=== PATIENT | female | born 1995 | race Caucasian/White ===

== ENCOUNTER 2024-12-11 19:07 | Inpatient (IN) | payer BC, SELFPAY ==
[2024-12-11] VITALS (7 sets, daily range): BP systolic 88–111; BP diastolic 50–86; BMI 29.6; BMI 28.9
--- NOTE | 2024-12-11 16:29 | ED.GENMED ---
History of Present Illness
General
Time Seen by Provider: 12/11/24 16:29
History of Present Illness
History of Present Illness:
TIME OF INITIAL ENCOUNTER: 4:30 PM
HPI:
EXAM:
NUMBER AND COMPLEXITY OF PROBLEMS ADDRESSED AT THE ENCOUNTER
� Chronic conditions affecting care:
� Acute Exacerbation and/or Progression of Chronic Illness:
� Differential Diagnosis includes:
AMOUNT AND/OR COMPLEXITY OF DATA TO BE REVIEWED AND ANALYZED
� I performed an independent evaluation of and my interpretation is:
EKG:
CT:
X-rays:
Laboratory Studies:
Other:
� Review of other/old records:
� Clinical information was obtained by an independent historian:
� Prescriptions/Medications Considered but not given:
� Further testing considered but not performed:
RISK OF COMPLICATIONS AND/OR MORBIDITY OR MORTALITY OF PATIENT MANAGEMENT
� Social determinants of health affecting care:
� Discussion with other providers:
� Escalation of care including admission/observation vs risk of discharge considered:
ANY OTHER UPDATES:
ED Attending Note
-
Portions of this chart may have been created with voice recognition software.� Occasional wrong word or��sound alike� substitutions may have occurred due to the inherent limitations of voice recognition software.
Discharge Plan
Departure
Referrals:
UNKNOWN - PT DOES,NOT KNOW [Family Provider]
Discharge Date and Time
Print Language: SPANISH
--- NOTE | 2024-12-11 16:39 | DOWNTIME ---
There was a [facility] [employer] Downtime on 12/11/2024 from 1230 to 12/11/2024 at 1550. Downtime documentation of patient's care, including medication administrations, has been reconciled in the electronic record per guidelines. Refer to the
patient's paper chart under the miscellaneous tab to see printed paper medication records and downtime forms.
[2024-12-11 16:58] LABS: Urine Albumin 2+ (Neg - Trace); Urine Bilirubin 2+ (Negative); Urine Character Clear (Clear); Urine Color Yellow; Urine Glucose Negative (Negative); Urine Ketone 1+ (Negative); Urine Leukocyte 1+ (Negative); Urine Nitrite Negative (Negative); Urine Occult Blood 4+ (Negative); Urine Urobilinogen 3+ (Neg - 1+)
--- NOTE | 2024-12-11 17:05 | ED.GENMED ---
History of Present Illness
<Nalini Herrera, GLASS TECHNICIAN - Last Filed: 12/12/24 23:00>
General
Chief Complaint: Fever
Source: patient
Exam Limitations: none
Time Seen by Provider: 12/11/24 16:29
Nursing documentation reviewed up to this point in time: agreed with
History of Present Illness
History of Present Illness:
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
5 days ago felt generally fatigued, stressed with illness in family, nauseated.
4 days ago headache, vomited that night. Fever 103 took Tylenol
3 days ago fatigue, laid on couch all day, fever, chills, poor appetite vomited once
2 days ago felt a little better but still with fever, started menses. Went to [facility], and labs showed neutropenia and thrombocytopenia, EKG was normal. Didn't want to come to hospital, home and rested
Today, went back to [employer], had 1.5 liters NSS, 1 L RL, Toradol IV fever 103. [facility] from [facility] reports WBC 1.0, Platelets 25 so sent here for eval.
Pt denies CP, SOB, abd pain. Denies UTI symptoms. Mild, intermittent cough
No known sick contacts, no recent travel outside states.
Past History
<Nalini Herrera, GLASS TECHNICIAN - Last Filed: 12/12/24 23:00>
Past History
ED Past Medical History: Asthma and Other (migraines)
ED Past Surgical History: Orthopedic and Other (wisdom teeth)
Social History
Tobacco: Non-smoker
Alcohol: Occasional
Personal: Single
Living: with family
Employment: Employed
Review of Systems
<Nalini Herrera, GLASS TECHNICIAN - Last Filed: 12/12/24 23:00>
Review of Systems
Allergies reviewed?: Yes
All Other Systems: ROS reviewed and negative except as documented in HPI and ROS
Constitutional: Reports fever, fatigue and chills
EENT: Reports sore throat (had mild sore throat but thinks its from dry mouth, throat not sore now)
Respiratory: Reports cough (mild, intermittent); Denies trouble breathing
Cardiac: Denies chest pain, diaphoresis or syncope
ABD/GI: Reports nausea, vomiting and anorexia; Denies abdominal pain
: Denies dysuria, frequency or difficulty voiding
Musculoskeletal: Reports no symptoms
Skin: Reports no symptoms
Neurological: Reports no symptoms
Phy Exam
<Nalini Herrera, GLASS TECHNICIAN - Last Filed: 12/12/24 23:00>
Physical Exam
Physical Exam:
GENERAL: No acute distress. A&Ox3.
CONSTITUTIONAL: Temp 101.6 po
EYES: clear, conjunctivae normal
ENMT: moist mucus membranes, Pharynx nl
RESPIRATORY: Regular respirations, nonlabored, lungs clear.
CARDIOVASCULAR: Tachycardic rate 114 regular rate and rhythm, no murmurs, no rubs.
GI: Soft, nontender, normal BS
MUSCULOSKELETAL: Moves with ease. Well perfused.
SKIN: Warm, dry, pink
PSYCH: Normal mood and affect. Well kept, interactive and appropriate
NEUROLOGIC: Awake, alert and oriented. No focal neurological deficits
Course
<Nalini Herrera, GLASS TECHNICIAN - Last Filed: 12/12/24 23:00>
Orders/Labs/Results
Orders:
Orders
12/11/24 Breakfast
Regular
At Your Request: Full Participation
12/11/24 15:51
COVID-19 Antigen Routine
Complete Blood Count/With Diff Routine
Comprehensive Metabolic Panel Routine
HCG, Serum Qualitative Screen Routine
Lactic Acid Routine
Monotest Urgent
Comment: ADDON
PTT Routine
Prothrombin Time Routine
Urinalysis Reflex To Culture Routine
Urine Microscopic Reflex Cult Routine
Blood Culture Routine
DEUCE Source: B
Specimen Description:
Blood Culture Routine
DEUCE Source: B
Specimen Description:
Influenza A+B Rapid Molecular Routine
DEUCE Source: [place]AB
Specimen Description:
Urine Culture Routine
DEUCE Source: U
Specimen Description:
12/11/24 17:45
Add On- LAB Urgent
Tests Added?: monotest
12/11/24 17:48
Add On- LAB Urgent
Tests Added?: urine culture
12/11/24 18:41
Admit/Transfer Patient As Directed
Co-Sign Provider:
Level of Care: Inpatient admission
Assign to:: Telemetry
Physician / Group: reyna
Diagnosis: fever
Reason for Telemetry: Arrhythmia
Date to Stop Telemetry: 12/14/24
Time to Stop Telemetry: 11:00
Reason for Hospitalization: fever
Expected length of stay greater than two midnights?: Yes
ELOS- Estimated Length of Stay in days: 3
I certify the patient meets the requirements for IP care: Yes
PRN Pain Medication Management As Directed
May give lesser potent ordered pain med per pt: Yes
preference::
Protocol:: Medication orders for pain may be administered in a
manner that supports deferring to patient preference
when the pt is:
- Requesting an ordered lesser potent pain medication.
Least to most potent pain medications are defined
as: acetaminophen < NSAID < tramadol < opioids
(morphine, oxycodone, hydromorphone).
- Requesting a lesser dose of the same medication IF
ORDERED.
- Requesting a less intrusive route of administration
if both routes are prescribed by the provider (PO <
IV).
12/11/24 18:42
Code Status As Directed
Resuscitation Status: Full Code
12/11/24 19:54
[place] Virus Ab Panel I [S] Urgent
Hepatitis A IgM Antibody Urgent
Hepatitis B Core Ab, IgM Urgent
Hepatitis B Surface Antibody Urgent
Hepatitis B Surface Antigen Urgent
Hepatitis C Antibody Urgent
Parvo Virus (B19) IgG & IgM [S] Urgent
12/11/24 20:43
0.9% Sodium Chloride 1000 ml [Nss] 1,000 ml IV 125 mls/hr
Bisacodyl [Dulcolax] 10 mg RECTAL [id number] PRN
Docusate W/Senna [Senokot-S] 1 tablet PO BIDPRN PRN
Ibuprofen [Motrin] 400 mg PO Q6HPRN PRN
Polyethylene Glycol Powder [Miralax] 17 grams PO DAILYPRN PRN
12/11/24 20:43
Respiratory Culture/Gram Stain Routine
DEUCE Source: Sputum
Specimen Description:
Date Specimen was Collected: 12/12/24
Time Specimen was Collected: 16:06
Activity As Directed
Activity Level: As Tolerated
Pneumatic Compression Sleeves As Directed
Type: Knee high
Vital Signs As Directed
Frequency: Per unit guidelines
DX Deep Vein Thrombosis Video Routine
12/11/24 20:57
Albuterol [ProAIR HFA INHALER] 2 puff INH R ONCE PRN PRN
12/11/24 22:00
Montelukast Sodium [Singulair] 10 mg PO HS
Nortriptyline [Pamelor] 20 mg PO HS
12/11/24 23:22
Lactic Acid Q4H
12/12/24 06:16
Comprehensive Metabolic Panel IN AM
12/13/24 06:00
Complete Blood Count/No Diff IN AM
Comprehensive Metabolic Panel IN AM
12/14/24 06:00
Complete Blood Count/No Diff IN AM
Comprehensive Metabolic Panel IN AM
12/14/24 11:00
DC Protocol for Telemetry ONCE
12/15/24 06:00
Complete Blood Count/No Diff IN AM
Comprehensive Metabolic Panel IN AM
Abnormal Lab Results
12/11/24
15:51
WBC 1.1 L* 10^3/uL
(4.8-10.8)
RBC 4.08 L 10^6/uL
(4.20-5.40)
Hct 35.4 L %
(37.0-47.0)
Plt Count 44 L 10^3/uL
(130-400)
MPV 12.6 H fL
(7.4-10.4)
Absolute Neuts (auto) 0.8 L* 10^3/uL
(1.4-6.5)
Absolute Lymphs (auto) 0.3 L 10^3/uL
(1.2-3.4)
PT 14.8 H Sec
(11.4-14.6)
Sodium 133 L mmol/L
(135-145)
Lactic Acid 2.1 H mmol/L
(0.7-2.0)
Calcium 7.0 L mg/dl
(8.4-10.2)
Total Bilirubin 2.0 H mg/dl
(0.2-1.3)
AST 121 H U/L
(14-36)
ALT 199 H U/L
(0-35)
Alkaline Phosphatase 482 H U/L
(38-126)
Total Protein 5.1 L g/dl
(6.3-8.2)
Albumin 3.0 L g/dl
(3.5-5.0)
Urine Ketones 1+ A
(Negative)
Ur Occult Blood Reflex 4+ A
(Negative)
Urine Bilirubin 2+ A
(Negative)
Urine Urobilinogen 3+ A
(Neg - 1+)
Leukocyte Esterase Rfl 1+ A
(Negative)
Urine RBC 16-20 A /HPF
(0-2)
Urine WBC (Reflex) 11-15 A /HPF
(0-5)
Urine Bacteria (Reflex) Many A
(Negative)
Urine Albumin (Reflex) 2+ A
(Neg - Trace)
12/11/24 15:51
12/11/24 15:51
Vital Signs
Initial and Last Documented VS:
Initial Vital Signs
Pulse Ox
97
12/11/24 16:30
Last Documented Vital Signs
Temp Pulse Resp BP Pulse Ox
102.3 F H 120 18 122/79 99
12/12/24 21:45 12/12/24 19:17 12/12/24 19:17 12/12/24 19:17 12/12/24 19:17
<Marisela Vance MD - Last Filed: 12/11/24 18:21>
Orders/Labs/Results
Orders:
Orders
12/11/24 Breakfast
Regular
At Your Request: Full Participation
12/11/24 15:51
COVID-19 Antigen Routine
Complete Blood Count/With Diff Routine
Comprehensive Metabolic Panel Routine
HCG, Serum Qualitative Screen Routine
Lactic Acid Routine
Monotest Urgent
Comment: ADDON
PTT Routine
Prothrombin Time Routine
Urinalysis Reflex To Culture Routine
Urine Microscopic Reflex Cult Routine
Blood Culture Routine
DEUCE Source: B
Specimen Description:
Blood Culture Routine
DEUCE Source: B
Specimen Description:
Influenza A+B Rapid Molecular Routine
DEUCE Source: [place]AB
Specimen Description:
Urine Culture Routine
DEUCE Source: U
Specimen Description:
12/11/24 17:45
Add On- LAB Urgent
Tests Added?: monotest
12/11/24 17:48
Add On- LAB Urgent
Tests Added?: urine culture
12/11/24 18:41
Admit/Transfer Patient As Directed
Co-Sign Provider:
Level of Care: Inpatient admission
Assign to:: Telemetry
Physician / Group: reyna
Diagnosis: fever
Reason for Telemetry: Arrhythmia
Date to Stop Telemetry: 12/14/24
Time to Stop Telemetry: 11:00
Reason for Hospitalization: fever
Expected length of stay greater than two midnights?: Yes
ELOS- Estimated Length of Stay in days: 3
I certify the patient meets the requirements for IP care: Yes
PRN Pain Medication Management As Directed
May give lesser potent ordered pain med per pt: Yes
preference::
Protocol:: Medication orders for pain may be administered in a
manner that supports deferring to patient preference
when the pt is:
- Requesting an ordered lesser potent pain medication.
Least to most potent pain medications are defined
as: acetaminophen < NSAID < tramadol < opioids
(morphine, oxycodone, hydromorphone).
- Requesting a lesser dose of the same medication IF
ORDERED.
- Requesting a less intrusive route of administration
if both routes are prescribed by the provider (PO <
IV).
12/11/24 18:42
Code Status As Directed
Resuscitation Status: Full Code
12/11/24 19:54
[place] Virus Ab Panel I [S] Urgent
Hepatitis A IgM Antibody Urgent
Hepatitis B Core Ab, IgM Urgent
Hepatitis B Surface Antibody Urgent
Hepatitis B Surface Antigen Urgent
Hepatitis C Antibody Urgent
Parvo Virus (B19) IgG & IgM [S] Urgent
12/11/24 20:43
0.9% Sodium Chloride 1000 ml [Nss] 1,000 ml IV 125 mls/hr
Bisacodyl [Dulcolax] 10 mg RECTAL [id number] PRN
Docusate W/Senna [Senokot-S] 1 tablet PO BIDPRN PRN
Ibuprofen [Motrin] 400 mg PO Q6HPRN PRN
Polyethylene Glycol Powder [Miralax] 17 grams PO DAILYPRN PRN
12/11/24 20:43
Respiratory Culture/Gram Stain Routine
DEUCE Source: Sputum
Specimen Description:
Date Specimen was Collected: 12/12/24
Time Specimen was Collected: 16:06
Activity As Directed
Activity Level: As Tolerated
Pneumatic Compression Sleeves As Directed
Type: Knee high
Vital Signs As Directed
Frequency: Per unit guidelines
DX Deep Vein Thrombosis Video Routine
12/11/24 20:57
Albuterol [ProAIR HFA INHALER] 2 puff INH R ONCE PRN PRN
12/11/24 22:00
Montelukast Sodium [Singulair] 10 mg PO HS
Nortriptyline [Pamelor] 20 mg PO HS
12/11/24 23:22
Lactic Acid Q4H
12/12/24 06:16
Comprehensive Metabolic Panel IN AM
12/13/24 06:00
Complete Blood Count/No Diff IN AM
Comprehensive Metabolic Panel IN AM
12/14/24 06:00
Complete Blood Count/No Diff IN AM
Comprehensive Metabolic Panel IN AM
12/14/24 11:00
DC Protocol for Telemetry ONCE
12/15/24 06:00
Complete Blood Count/No Diff IN AM
Comprehensive Metabolic Panel IN AM
Abnormal Lab Results
12/11/24
15:51
WBC 1.1 L* 10^3/uL
(4.8-10.8)
RBC 4.08 L 10^6/uL
(4.20-5.40)
Hct 35.4 L %
(37.0-47.0)
Plt Count 44 L 10^3/uL
(130-400)
MPV 12.6 H fL
(7.4-10.4)
Absolute Neuts (auto) 0.8 L* 10^3/uL
(1.4-6.5)
Absolute Lymphs (auto) 0.3 L 10^3/uL
(1.2-3.4)
PT 14.8 H Sec
(11.4-14.6)
Sodium 133 L mmol/L
(135-145)
Lactic Acid 2.1 H mmol/L
(0.7-2.0)
Calcium 7.0 L mg/dl
(8.4-10.2)
Total Bilirubin 2.0 H mg/dl
(0.2-1.3)
AST 121 H U/L
(14-36)
ALT 199 H U/L
(0-35)
Alkaline Phosphatase 482 H U/L
(38-126)
Total Protein 5.1 L g/dl
(6.3-8.2)
Albumin 3.0 L g/dl
(3.5-5.0)
Urine Ketones 1+ A
(Negative)
Ur Occult Blood Reflex 4+ A
(Negative)
Urine Bilirubin 2+ A
(Negative)
Urine Urobilinogen 3+ A
(Neg - 1+)
Leukocyte Esterase Rfl 1+ A
(Negative)
Urine RBC 16-20 A /HPF
(0-2)
Urine WBC (Reflex) 11-15 A /HPF
(0-5)
Urine Bacteria (Reflex) Many A
(Negative)
Urine Albumin (Reflex) 2+ A
(Neg - Trace)
12/11/24 15:51
12/11/24 15:51
Vital Signs
Initial and Last Documented VS:
Initial Vital Signs
Pulse Ox
97
12/11/24 16:30
Last Documented Vital Signs
Temp Pulse Resp BP Pulse Ox
102.3 F H 120 18 122/79 99
12/12/24 21:45 12/12/24 19:17 12/12/24 19:17 12/12/24 19:17 12/12/24 19:17
<Nalini Herrera, GLASS TECHNICIAN - Last Filed: 12/12/24 23:00>
MDM/Problems Addressed
Differential Diagnosis Includes:
viral illness, malignancy,
MDM/Problems Addressed:
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
5 days ago felt generally fatigued, stressed with illness in family, nauseated.
4 days ago headache, vomited that night. Fever 103 took Tylenol
3 days ago fatigue, laid on couch all day, fever, chills, poor appetite vomited once
2 days ago felt a little better but still with fever, started menses. Went to [facility], and labs showed neutropenia and thrombocytopenia, EKG was normal. Didn't want to come to hospital, home and rested
Today, went back to [facility], had 1.5 liters NSS, 1 L RL, Toradol IV fever 103. Kalani from [facility] reports WBC 1.0, Platelets 25 so sent here for eval.
Pt denies CP, SOB, abd pain. Denies UTI symptoms. Mild intermittent cough.
No known sick contacts, no recent travel outside states.
Temp 101.6 for this examiner HR 114
Results from [facility] with her, scanned into chart.
Specifically had neg Lymes, CXR neg (disc to our xray dept and copied into system), neg Flu, covid.
5:45 p.m.
CBC: WBC 1.1 Plt count 44, otherwise normal
CMP: Transaminitis,
Lactic 2.1
HCG neg
U/A: +4 occult blood, 16-20 RBC, (pt menstruating). 11-15 WBC, many bacteria, Urine culture pending.
6:00 p.m.
Case discussed with Dr. Vance who agrees with admission diagnosis: Transaminitis, neutropenia, thrombocytopenia
Dr. Henry read the CXR:
Hospitalist notified of admission.
<Nalini Herrera GLASS TECHNICIAN - Last Filed: 12/12/24 23:00>
*Critical Care Note
Total Time (30-74mins, 75-104mins- exclusive of procedures): Not Applicable
ED Attending Note
<Nalini Herrera GLASS TECHNICIAN - Last Filed: 12/12/24 23:00>
-
Portions of this chart may have been created with voice recognition software.� Occasional wrong word or��sound alike� substitutions may have occurred due to the inherent limitations of voice recognition software.
<Marisela Vance MD - Last Filed: 12/11/24 18:21>
ED Attending Note
Patient seen and examined by attending physician: Yes
I performed the substantive portion of visit, reviewed & personally made and approve the management plan that is documented in note by myself or RALPH.: Yes
ED Attending Note:
I have seen and evaluated the patient with a [id number] encounter. I have spoken to the [GLASS TECHNICIAN] and involved in the medical history, the physical exam, medical decision making.
Evaluation and management service: agree unless noted differently below.
Results interpretation: agree unless noted differently below.
Patient is a 29-year-old female presenting to the emergency department with fever for the past 5 days. Patient states that it started off with GI symptoms including nausea vomiting diarrhea and a decreased appetite. She then developed a cough.
She does work in urgent care. She does state that the fever has been every single day. It is never happened to her before. On exam patient does have dry oral mucosa. Her abdomen is benign. Blood work was obtained prior to my evaluation which
does show a leukopenia, thrombocytopenia, neutropenia as well as transaminitis. COVID and flu are negative. Will add on monoscreen. Given the abnormalities and patient's ongoing symptoms she will benefit from admission.
Discharge Plan
Departure
Patient Disposition: Admit
Date of Disposition: 12/11/24
Time of Disposition: 18:01
Presentation/result/management discussed w/ accepting MD/DO: Hospitalist
Condition: Fair
Discharge Problem:
Transaminitis, Neutropenia, Thrombocytopenia, Fever
Interventions
Interventions:
*Risk Screen - Suicide Last Done: 12/11/24 16:30
*General Assessment Last Done: 12/11/24 16:30
*Neglect/Abuse Screening Last Done: 12/11/24 16:30
*ED- Fall Risk Assessment Last Done: 12/11/24 16:30
*ED COVID-19 Vaccine History Last Done: 12/11/24 19:49
*Nursing Disposition Last Done: 12/11/24 20:49
ED- Neurological Assessment Last Done: 12/11/24 16:30
ED-Skin Assessment Last Done: 12/11/24 16:30
Discharge Date and Time
Discharge Date/Time: 12/11/24 20:50
[2024-12-11 17:10] LABS: COVID-19 Antigen Negative (Negative)
[2024-12-11 17:15] LABS: Lactic Acid 2.1 mmol/L (0.7-2.0)
[2024-12-11 17:16] LABS: Urine Bacteria Many (Negative); Urine Red Blood Cell 16-20 /HPF (0-2)
[2024-12-11 17:20] LABS: HCG, Serum Qualitative Screen Negative
[2024-12-11 17:23] LABS: ALT (SGPT) 199 U/L (0-35); AST (SGOT) 121 U/L (14-36); Alkaline Phosphatase 482 U/L (38-126); Blood Urea Nitrogen 13 mg/dl (7-17); Carbon Dioxide 23 mmol/L (22-30); Chloride 105 mmol/L (98-107); Estimated Creatinine Clearance 120 ml/min; Glucose 98 mg/dl (70-99); INR 1.11; PT 14.8 Sec (11.4-14.6); Potassium 3.9 mmol/L (3.5-5.1); Sodium 133 mmol/L (135-145); Total Protein 5.1 g/dl (6.3-8.2); eGFR > 60.00
[2024-12-11 17:24] LABS: APTT 31.6 Sec (23.4-35.0)
[2024-12-11 17:41] LABS: % Eosinophils 0.9 % (0-6); % Lymphocytes 25.2 % (20.5-51.1); % Monocytes 6.3 % (1.7-9.3); % Neutrophils 67.6 % (42.2-75.2); Absolute Lymphocytes 0.3 10^3/uL (1.2-3.4); Absolute Monocytes 0.1 10^3/uL (0.1-0.6); Absolute Neutrophils 0.8 10^3/uL (1.4-6.5); Hematocrit 35.4 % (37.0-47.0); Hemoglobin 12.3 g/dL (12.0-16.0); Mean Corp Hgb Conc. 34.7 g/dL (33.0-37.0); Mean Corpuscular Hgb 30.1 pg (27.0-31.0); Mean Corpuscular Volume 86.8 fL (81.0-99.0); Mean Platelet Volume 12.6 fL (7.4-10.4); Nucleated Red Blood Cells % 0 %; Platelet Count 44 10^3/uL (130-400); Red Blood Cell Count 4.08 10^6/uL (4.20-5.40); Red Cell Dist. Width 13.1 % (11.5-14.5); White Blood Cell Count 1.1 10^3/uL (4.8-10.8)
--- NOTE | 2024-12-11 18:09 | HPS.HSE ---
Family Physician
-
Family Physician: NOT KNOW UNKNOWN - PT DOES
Chief Complaint
-
fever, chills.
History of Present Illness
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 five days ago felt generally fatigued and nausea. the following day, she woke up with BARBER, vomiting and fever of 103. Patient complained of fever with
dark greenish sputum. She is taking ibuprofen every 6 hours since then. patient stated poor appetite. stated very fatigue and sleeping more than usual. she started having menses two days ago. [facility] and noted to have
neutropenia,thrombocytopenia. denied chest pain, sob. denied abdominal pain, denied dysuria or hematuria.
Upon arrival patient was noted hypotensive and tachycardic. She was also noted to have thrombocytopenia, neutropenia. Patient received fluids in ER. Admitted for further management
Medical History
Past Medical History
Past Medical History: Reports Other
Additional Past Medical History:
Migraine, asthma
Past Surgical History: Reports Other
Additional Past Surgical History:
Right ankle surgery, wisdom tooth extraction, cryotherapy on the nose
Social History
Tobacco: Non-smoker
Alcohol: Occasional
Drug: None
Living: With Family
Family History
Family History: Not pertinent
Allergies / Home Medications
Allergies reflects when Allergies were last updated in [facility].
Home Medications with original date entered in [facility]
Allergy/Medication List:
Allergies
Allergy/AdvReac Type Severity Reaction Status Date / Time
No Known Allergies Allergy Verified 12/11/24 16:40
Review of Systems
-
Constitutional: Reports Fever, Fatigue and Chills
EENT: Reports No Symptoms
Respiratory: Reports Cough
Cardiac: Reports No Symptoms
Abdomen/GI: Reports Nausea and Vomiting
: Reports No Symptoms
Musculoskeletal: Reports No Symptoms
Skin: Reports No Symptoms
Neurological: Reports No Symptoms
Endocrine: Reports No Symptoms
Hematologic/Lymphatic: Reports No Symptoms
Psych: Reports No Symptoms
Physical Exam
Vital Signs
Vital Signs
Pulse Resp BP Pulse Ox
114 16 111/57 95
12/11/24 16:40 12/11/24 16:40 12/11/24 16:40 12/11/24 16:40
Physical Exam
General: Well Developed, Well Nourished and No Apparent Distress
HEENT: NormoCephalic, Moist mucous membranes and Atraumatic
Respiratory: Clear
Cardiac: S1/S2 and Regular Rhythm; No Murmur or Rub
GI: Soft, Non Tender, Non Distended and Normal Bowel Sounds; No Organomegaly
Rectal: Deferred by Provider
Musculoskeletal: No Clubbing, No Cyanosis and No Edema
Skin: No Rash
Neuro: AO x 3 and Nonfocal/grossly intact
Psych: Calm
Laboratory Results
-
12/11/24 15:51
12/11/24 15:51
Laboratory Results
PT 14.8 Sec (11.4-14.6) H 12/11/24 15:51
INR 1.11 12/11/24 15:51
APTT 31.6 Sec (23.4-35.0) 12/11/24 15:51
Lactic Acid 2.1 mmol/L (0.7-2.0) H 12/11/24 15:51
Total Bilirubin 2.0 mg/dl (0.2-1.3) H 12/11/24 15:51
AST 121 U/L (14-36) H 12/11/24 15:51
ALT 199 U/L (0-35) H 12/11/24 15:51
Alkaline Phosphatase 482 U/L (38-126) H 12/11/24 15:51
Data Reviewed
-
Lab Data: Labs Reviewed by me
Impression/Plan
-
# Nausea/vomiting/fever/chills unclear cause likely viral
#SIRS as evident by leukopenia/tachy, hypotension and lactic
- WBCs 1.1, platelets 44, neutrophils 0.8
- Lactic 2.1
- Urine culture sent from ER
- Carter negative
- Tylenol as needed for fever
- Fluids continued
- Trend lactic
-[place]-richards virus panel ordered
-parasites and HIV combo ordered
-cefepime and doxy continued as per ID
-ID consulted
# Hypocalcemia/hyper bili/transaminitis
- Calcium 7.0, T. bili 2.0, AST 121, ALT 199
- Denies abdominal pain
- Trend LFTs
-hep panel ordered
-obtain US of abdomen
# History of asthma
- Not in acute exacerbation
- Singulair continued
# Migraine
# DVT prophylaxis
- SCDs
# CODE STATUS
- Full code
[2024-12-11 18:38] LABS: Monotest Negative (Negative)
--- NOTE | 2024-12-11 19:24 | W.PN.UPDATE ---
Update Note
Progress Note Update
This is an addendum to H&P written by BIOLOGICAL SCIENCES INSTRUCTOR Shruthi Lundberg
I saw and examined the patient.
The BIOLOGICAL SCIENCES INSTRUCTOR's note was reviewed and I agree with the note.
Comment:
Ms. Pastora Ornelas is a 29 yo woman with hx migraines, asthma who presents to the ER with 5 days of high fever to 103, body aches, nausea, productive cough. 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
She received 2L IVF at urgent care this morning and presents to the ER.
Triage VS: P 114 (patient states pulse always > 100), RR 16, BP 111/57, T 100.1
On exam patient is awake, alert, conversant. Chest clear; CV: S1, S2, RRR; Abdomen: soft, non-tender, no LE swelling, no rash
LABS: WBC 1.1, Hg 12.3, PLT 44, INR 1.11, Na 133, K+ 3.9, Cl 105, BUN 13, Cr 0.8, Glucose 98, Lactate 2.1, T. Bili 2.0, AST 121, ALT 199, Alk Phos 482
covid and flu negative
Severe Sepsis
Neutropenia
Thrombocytopenia
Transaminitis
Productive cough
-unclear source of fever, suspect infection viral versus tick-borne illness resulting in lab abnormalities
-will send Hepatitis panel, EBV Ab, parvovirus, HIV (although patient with one partner, low risk), Ehrlichia, Anaplasma and parasite smear
-Abdominal US, repeat CXR (do not have results from urgent care)
-F/U blood cultures, sputum culture
-case discussed with ID this evening, formal consult tomorrow
-given neutropenia will start IV Cefepime, Doxycycline
-IVF, trend lactate and bolus as needed
-monitor CBC, CMP
Hx Migraines
-AUTO RADIATOR MECHANIC Nortiptyline
Asthma
-AUTO RADIATOR MECHANIC inhaler PRN, montelukast qhs
DVT PPx
FULL CODE
Remainder of plan per BIOLOGICAL SCIENCES INSTRUCTOR note
76 minutes spent on patient care
[2024-12-11] MEDS: MAXIPIME 2000 MG IV (19:47)
[2024-12-11] MEDS: STERILE WATER FOR INJECTION 10 ML IV (19:48)
[2024-12-11] MEDS: FLUSH (NSS) 1 FLUSH IV (19:58)
[2024-12-11] MEDS: VIBRAMYCIN 260 MG IV (19:58)
[2024-12-11] MEDS: PAMELOR 20 MG PO (21:07)
[2024-12-11] MEDS: NSS 1000 IV (21:17)
[2024-12-11] MEDS: SINGULAIR 10 MG PO (21:18)
[2024-12-11 21:19] LABS: HIV Combo Negative (Negative)
[2024-12-11] MEDS: TYLENOL 650 MG PO (22:16)
[2024-12-12] MEDS: STERILE WATER FOR INJECTION 10 ML IV ×3 (02:12→13:59)
[2024-12-12] MEDS: MAXIPIME 1000 MG IV ×3 (02:12→13:59)
[2024-12-12] MEDS: DUONEB 3 ML INH ×4 (02:24→20:02)
[2024-12-12 03:07] VITALS: BP 92/57
[2024-12-12] MEDS: NSS 1000 IV ×3 (04:33→23:17)
[2024-12-12 06:00] VITALS: BMI 29.2
[2024-12-12] MEDS: TYLENOL 650 MG PO (06:41)
[2024-12-12 06:47] LABS: ALT (SGPT) 249 U/L (0-35); AST (SGOT) 245 U/L (14-36); Albumin 2.8 g/dl (3.5-5.0); Alkaline Phosphatase 563 U/L (38-126); Blood Urea Nitrogen 10 mg/dl (7-17); Calcium 7.3 mg/dl (8.4-10.2); Carbon Dioxide 19 mmol/L (22-30); Chloride 110 mmol/L (98-107); Estimated Creatinine Clearance > 125 ml/min; Glucose 81 mg/dl (70-99); Hematocrit 35.9 % (37.0-47.0); Hemoglobin 12.7 g/dL (12.0-16.0); Mean Corp Hgb Conc. 35.4 g/dL (33.0-37.0); Mean Corpuscular Hgb 30.6 pg (27.0-31.0); Mean Corpuscular Volume 86.5 fL (81.0-99.0); Mean Platelet Volume 11.4 fL (7.4-10.4); Platelet Count 42 10^3/uL (130-400); Potassium 4.2 mmol/L (3.5-5.1); Red Blood Cell Count 4.15 10^6/uL (4.20-5.40); Red Cell Dist. Width 13.2 % (11.5-14.5); Sodium 137 mmol/L (135-145); Total Bilirubin 2.1 mg/dl (0.2-1.3); White Blood Cell Count 1.4 10^3/uL (4.8-10.8); eGFR > 60.00
[2024-12-12 07:35] VITALS: BP 96/61
--- NOTE | 2024-12-12 07:45 | W.PN.HOSP.TC ---
Today's Communication/Plan
-
- Follow-up lab results for possible causes of infection
- Await liver toxic medications
- Follow-up CBC, BMP and vitals
Assessment / Plan
Assessment / Plan
#Fever with unknown ethology
-Complicated with leukopenia, neutropenia and thrombocytopenia likely secondary to tick borne illnesses vs viral causes
- WBCs 1.4, platelets 42, neutrophils 0.8
-Symptoms ongoing (nausea/fever/chills)-symptomatic treatment with as needed ibuprofen, cooling blanket, Zofran as needed
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
-ID consulted
-Hep panel pending,[place]-richards virus panel pending, parasites pending, HIV negative, Monospot negative
-Continue cefepime and Doxy for now
#Transaminitis
-No history of liver disease
-LFT s elevated, TB elevated-Follow up
-Abdominal ultrasound: Splenomegaly. Trace abdominal ascites.'
-Denies any mediation overuse ( Tylenol upper dose 1 gram/daily--not more than 4 gr in total in last 5-7 days)
# Asymptomatic bacteriuria
- Urinalysis shows bacteriuria
- No dysuria or increased frequency of urination, per patient
- Urine culture was sent pending
# Metabolic acidosis likely secondary to IV saline
-Switching to LR can be considered if acidosis persists
-Lactic acid level come back to normal
-Follow-up BMP
# Hypocalcemia
- No symptoms of hypocalcemia
- Corrected calcium level 8.3 this a.m. (close to normal range)
- Follow-up
# History of asthma
- Not in acute exacerbation
- Singulair continued
# Migraine
# DVT prophylaxis
- SCDs
# CODE STATUS
- Full code
Anticipated Discharge: 24 - 48 hours
Subjective/Interval History
-
Date of Service: December 12, 2024
Patient reports fever and chills since admission. Denies vomiting and reports some mild nausea.
Objective Data
-
Labs:
Laboratory Results
12/12/24
06:16
WBC 1.4 L*
Hgb 12.7
Hct 35.9 L
Plt Count 42 L
Sodium 137
Potassium 4.2
Chloride 110 H
Carbon Dioxide 19 L
BUN 10
Creatinine 0.7
Glucose 81
Calcium 7.3 L
Total Bilirubin 2.1 H
AST 245 H
ALT 249 H
Alkaline Phosphatase 563 H
Vital Signs:
Vital Signs
Temp Pulse Resp BP Pulse Ox
98.9 F 123 16 92/57 97
12/12/24 03:07 12/12/24 03:07 12/12/24 03:07 12/12/24 03:07 12/12/24 03:07
I&O
12/11/24 12/12/24 12/13/24
06:59 06:59 06:59
Intake Total 1730 / 1730
Balance 1730 / 1730
Review of Systems
-
History Source: Patient
EENT: Reports No Symptoms Reported
Respiratory: Reports No Symptoms
Cardiac: Reports No Symptoms
Abdomen/GI: Reports Nausea
Genitourinary: Reports No Symptoms
Musculoskeletal: Reports No Symptoms
Skin: Reports No Symptoms
Neuro: Reports No Symptoms
Physical Exam
-
General: Well Developed, Well Nourished, Comfortable and Conversant
HEENT: Normocephalic and Atraumatic
Respiratory: Clear to Auscultation
Cardiac: Regular Rhythm and S1/S2
GI: Soft, Nontender and Nondistended
Musculoskeletal: No Clubbing, No Cyanosis and No Edema
Skin: Warm
Neuro: Awake, Alert, Oriented, AO x 3 and Nonfocal/Grossly Intact
Psych: Calm
[2024-12-12] MEDS: VISBIOME 1 CAP PO (08:11)
[2024-12-12] MEDS: VIBRAMYCIN 100 MG PO ×2 (08:11→21:37)
--- NOTE | 2024-12-12 08:54 | PTCARENOTE ---
pt with critical wbc of 1.4 this morning. MD made aware. pt also hypotensive, tachycardic and febrile with a 102.4 oral temp. cooling blanket ordered. MD made aware of vitals. pt flushed in the face but is a standby within the room.
[2024-12-12] MEDS: NSS (PRESERVATIVE FREE) 10 ML IV (09:36)
[2024-12-12] MEDS: PROTONIX IV 40 MG IV (09:36)
[2024-12-12] MEDS: ZOFRAN 4 MG IV ×2 (10:23→20:44)
[2024-12-12 11:17] VITALS: BP 109/72
--- NOTE | 2024-12-12 12:44 | CM ---
Patient seen at bedside with physicians. Patient stated that she lives with her boyfriend in a 2 story home. Patient friend Terese also present. patient has a nebulizer at home but no other DME. Patient uses [facility] in [place] and she
has a PCP Dr. Sherrell Faust. Patient plan is for discharge home with no needs. CM will continue to follow for discharge planning needs.
Plan; home with no needs vs home with VN
--- NOTE | 2024-12-12 13:37 | CON.ID ---
Consultation
-
Date/Time Consultation Requested: 12/11/2024 1926
Date/Time Consultation Performed: 12/12/2024 1130
Requesting Provider: Shruthi Lundberg
Performing Provider: Dr. Abreu
Reason for Consultation: Fever
Chief Complaint / Past History
History of Present Illness
Pastora Ornelas is a 29-year-old female being evaluated at the request of Shruthi Lundberg in regards to fever. History is obtained from chart review, along with patient interview.
The patient has a significant past medical history only for asthma and migraines. She reports that she was in her usual state of health until approximately 5 days ago when she woke up and had a headache in the morning. Later that day she developed
vomiting, and then developed a fever. Intermittent fevers and nausea/vomiting persisted over the next 2 days, and finally she went to an Urgent Care where blood work was performed, and she was found to be leukopenic, with a white count of 3.0.
Evaluation at an ER was offered, but she declined at that point. Over the next several days she continued to have fevers, general body aches along with nausea and vomiting. Finally she went back to the urgent care where repeat blood work was
performed, and it was found her white count was now 1.1. Because of ongoing weakness she came to the emergency room for further evaluation.
Workup here also revealed neutropenia, and a battery of tests was performed. She was started on empiric antibiotics (cefepime, doxycycline). At this point in time she reports feeling mildly improved. Overnight she continued to have temperatures,
but the temperature curve seems to be improving.
She reports significant outdoor exposure, having been camping and backpacking/hiking in [place] 2 weeks prior. At night she stayed in a small furnish cabin. She did not see any mice, but she did go camping with her dogs, who had multiple
ticks on them. She did not see any ticks on herself, though. She denies any rash on her body.
Past History
Additional Past Medical History:
Asthma
Migraines
Additional Past Surgical History:
Right ankle surgery
Allergy History:
No Known Allergies Allergy (Verified 12/11/24 16:40)
Medications Reviewed: Yes
Social History
Tobacco: Non-Smoker
Alcohol: None
Drug: None
Personal: Single
Living: With Family
Employment: Employed
Family History
Family History: Not Pertinent
Review of Systems
Vital Signs
Temp Pulse Resp BP Pulse Ox
98.3 F 108 18 109/72 100
12/12/24 11:17 12/12/24 11:17 12/12/24 11:17 12/12/24 11:17 12/12/24 11:17
Physical Exam
Physical Exam
Constitutional: No Acute Distress, Comfortable and Non-toxic
Head: Normocephalic
Eyes: Pupils Equal, Pupils Round, No Conjunctival Hemorrhage and Sclera Anicteric
Oral: No Thrush and No Ulcers
Cardiovascular: Regular Rate and S1/S2; Negative S3/S4 or Murmur
Pulmonary: Clear; Negative Wheezes, Rales or Rhonchi
Gastrointestinal: Soft, Non Tender, Non Distended and Normal Bowel Sounds
Genito-Urinary: Negative CVA Tenderness
Extremities: Negative Edema, Cyanosis or Erythema
Musculoskeletal: Negative Joint Swelling or Joint Effusion
Skin: Negative Rash or Jaundice
Neurological: Awake and Alert
Psychological: Calm
Lab / Diagnostic Study Results
12/12/24 06:16
12/12/24 06:16
Abs Immat Gran (auto) 0.0 10^3/uL (0-0.05) 12/11/24 15:51
Absolute Neuts (auto) 0.8 10^3/uL (1.4-6.5) L* 12/11/24 15:51
Absolute Lymphs (auto) 0.3 10^3/uL (1.2-3.4) L 12/11/24 15:51
Absolute Monos (auto) 0.1 10^3/uL (0.1-0.6) 12/11/24 15:51
Absolute Basos (auto) 0.0 10^3/uL (0-0.2) 12/11/24 15:51
Immature Gran % 0.0 % (0-0.5) 12/11/24 15:51
Neutrophils % 67.6 % (42.2-75.2) 12/11/24 15:51
Lymphocytes % 25.2 % (20.5-51.1) 12/11/24 15:51
Monocytes % 6.3 % (1.7-9.3) 12/11/24 15:51
Eosinophils % 0.9 % (0-6) 12/11/24 15:51
Basophils % 0.0 % (0-2) 12/11/24 15:51
PT 14.8 Sec (11.4-14.6) H 12/11/24 15:51
INR 1.11 12/11/24 15:51
Lactic Acid Cancelled 12/12/24 04:43
Ur Squamous Epith Cells 3-5 /LPF (Few) 12/11/24 15:51
Microbiology Results
Micro:
12/11/24 15:51 Urine Culture - Final
Urine
12/11/24 19:54 Blood Parasites Smear - Pending
Blood/Venous
12/11/24 15:51 Influenza Types A & B (DONIS) - Final
Nasal Swab Negative for Influenza A & B, NAAT
Negative results must be combined with clinical observations
and patient history.
Nucleic Acid Amplification test (NAAT)performed on the
[employer] platform.
12/11/24 15:51 Blood Culture - Pending
Blood/Venous
12/11/24 15:51 Blood Culture - Pending
Blood/Venous
Imaging:
12/11/2024 CXR (2 view): Mild bilateral central peribronchial thickening, possibly representing bronchiolitis or reactive airway disease from asthma. No focal consolidation, pleural effusion or pneumothorax seen. Please see full dictation for
additional detail. Film personally reviewed.
Assessment / Plan
Fever
Leukopenia/neutropenia
Transaminitis
Elevated bilirubin
Hx asthma
Hx migraines
Recommendations:
Continue current empiric cefepime and doxycycline.
Await pending tests, including blood cultures, blood parasite smear and tickborne serology.
Will order Ehrlichia and Anaplasma PCR
Follow white count and temperature curve.
Continue with supportive measures.
Further recommendations as additional data is returned.
Care Review
Plan reviewed with: Physician
[2024-12-12 15:15] VITALS: BP 115/71
[2024-12-12 15:16] LABS: Hematocrit 35.9 % (37.0-47.0); Hemoglobin 12.8 g/dL (12.0-16.0); Mean Corp Hgb Conc. 35.7 g/dL (33.0-37.0); Mean Corpuscular Hgb 30.1 pg (27.0-31.0); Mean Corpuscular Volume 84.5 fL (81.0-99.0); Red Blood Cell Count 4.25 10^6/uL (4.20-5.40); Red Cell Dist. Width 13.3 % (11.5-14.5)
[2024-12-12 16:07] LABS: % Basophils 1.3 % (0-2); % Lymphocytes 49.3 % (20.5-51.1); % Monocytes 11.2 % (1.7-9.3); % Neutrophils 36.2 % (42.2-75.2); Absolute Lymphocytes 0.8 10^3/uL (1.2-3.4); Absolute Monocytes 0.2 10^3/uL (0.1-0.6); Absolute Neutrophils 0.6 10^3/uL (1.4-6.5); Nucleated Red Blood Cells % 0 %; Platelet Count 24 10^3/uL (130-400); White Blood Cell Count 1.5 10^3/uL (4.8-10.8)
--- NOTE | 2024-12-12 16:59 | W.PN.UPDATE ---
Update Note
Progress Note Update
CBC lab results reviewed platelet count at 24 reviewed. Patient has no signs of active bleeding. Will continue to monitor platelet count. Transfuse if patient has any signs of major active bleeding or further decrease of platelets.
Repeat CBC and check INR/PT/PTT in PM. (Ordered )
[2024-12-12 18:35] LABS: Hepatitis B Surface Antigen Negative (Negative)
[2024-12-12 18:41] LABS: Hepatitis A IgM Antibody Negative (Negative); Hepatitis B Core Ab, IgM Negative (Negative)
[2024-12-12 18:52] LABS: Hepatitis B Surface Antibody Negative; Hepatitis C Antibody Reactive (Negative)
[2024-12-12 19:17] VITALS: BP 122/79
[2024-12-12] MEDS: MAXIPIME IV (20:25)
[2024-12-12] MEDS: STERILE WATER FOR INJECTION IV (20:25)
[2024-12-12] MEDS: ZYRTEC 10 MG PO (20:44)
[2024-12-12] MEDS: ROBITUSSIN 200 MG PO (20:44)
[2024-12-12] MEDS: SINGULAIR 10 MG PO (21:37)
[2024-12-12] MEDS: PAMELOR 20 MG PO (21:38)
[2024-12-12] MEDS: MOTRIN 400 MG PO (21:44)
[2024-12-12 22:19] LABS: % Basophils 0.6 % (0-2); % Eosinophils 0.6 % (0-6); % Immature Granulocytes 0.6 % (0-0.5); % Lymphocytes 61.1 % (20.5-51.1); % Monocytes 10.6 % (1.7-9.3); % Neutrophils 26.5 % (42.2-75.2); Absolute Lymphocytes 1.1 10^3/uL (1.2-3.4); Absolute Monocytes 0.2 10^3/uL (0.1-0.6); Absolute Neutrophils 0.5 10^3/uL (1.4-6.5); Hemoglobin 11.2 g/dL (12.0-16.0); Mean Corpuscular Hgb 30.1 pg (27.0-31.0); Mean Platelet Volume 12.2 fL (7.4-10.4); Nucleated Red Blood Cells % 0 %; Platelet Count 59 10^3/uL (130-400); Red Blood Cell Count 3.72 10^6/uL (4.20-5.40); Red Cell Dist. Width 13.3 % (11.5-14.5); White Blood Cell Count 1.8 10^3/uL (4.8-10.8)
[2024-12-12 22:21] LABS: INR 1.05; PT 14.3 Sec (11.4-14.6)
[2024-12-12 23:35] VITALS: BP 112/71
[2024-12-13] MEDS: MERREM 500 MG IV ×5 (00:22→23:43)
[2024-12-13] MEDS: STERILE WATER FOR INJECTION 10 ML IV ×5 (00:22→23:43)
[2024-12-13 03:20] VITALS: BP 108/69
[2024-12-13] MEDS: NSS 1000 IV (06:26)
[2024-12-13 07:08] LABS: Hematocrit 34.8 % (37.0-47.0); Hemoglobin 11.8 g/dL (12.0-16.0); Mean Corp Hgb Conc. 33.9 g/dL (33.0-37.0); Mean Corpuscular Hgb 29.9 pg (27.0-31.0); Mean Corpuscular Volume 88.3 fL (81.0-99.0); Platelet Count 70 10^3/uL (130-400); Red Blood Cell Count 3.94 10^6/uL (4.20-5.40); Red Cell Dist. Width 13.5 % (11.5-14.5); White Blood Cell Count 2.6 10^3/uL (4.8-10.8)
[2024-12-13] MEDS: DUONEB 3 ML INH ×4 (07:23→23:56)
[2024-12-13 07:35] VITALS: BP 114/64
--- NOTE | 2024-12-13 07:43 | W.PN.HOSP.TC ---
Today's Communication/Plan
-
- Follow-up lab results for possible causes of infection
- Avoid liver toxic medications
- Follow-up CBC, BMP and vitals
Assessment / Plan
Assessment / Plan
#Sepsis
-Fever/ Tachycardia and suspected infection at admission
-Complicated with leukopenia, neutropenia and thrombocytopenia likely secondary to tick borne illnesses vs viral causes
-CBC results are improving:WBCs 1.4, platelets 42, neutrophils 0.8 pn 12/12--CBC on 12/13/2024: WBC 2.6, platelets 70, neutrophils 0.7
-Continue neutropenic precautions
-Symptoms ongoing (nausea/fever/chills)-symptomatic treatment with as needed ibuprofen, cooling blanket, Zofran as needed
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
-ID on board
-Hep panel: Hep C antibody reactive- will check viral load --([place]-richards virus panel pending, parasites pending, HIV negative, Monospot negative)-blood smear pending
-Dc cefepime due to rashes and started on meropenem on 12/12-continue meropenem
-Continue Doxy for now
#Transaminitis
-No history of liver disease
-LFT s elevated-found increased, TB elevated-Follow up
-Abdominal ultrasound: Splenomegaly. Trace abdominal ascites.'
-Denies any mediation overuse ( Tylenol upper dose 1 gram/daily--not more than 4 gr in total in last 5-7 days)
# Asymptomatic bacteriuria
- Urinalysis shows bacteriuria
- No dysuria or increased frequency of urination, per patient
- Urine culture: Contamination
#Diarrhea
- Reports 1 episode of diarrhea yesterday and had a few episodes in last week
-Follow-up
# Metabolic acidosis likely secondary to IV saline
-Improving
-IV saline decreased to maintenance dose at 75 mL/h
-Lactic acid level come back to normal
-Follow-up BMP
# Hypocalcemia
- No symptoms of hypocalcemia
- Corrected calcium level 8.2 this a.m. (close to normal range)
- Follow-up
# History of asthma
- Not in acute exacerbation
- Singulair continued
- DuoNebs as needed
# Migraine
# DVT prophylaxis
- SCDs
# CODE STATUS
- Full code
Anticipated Discharge: 24 - 48 hours
Subjective/Interval History
-
Date of Service: December 13, 2024
Patient reports feeling less nauseous still feeling fatigue. Reports having difficult results of chills over the night
Objective Data
-
Labs:
Laboratory Results
12/12/24 12/13/24
22:03 06:47
WBC 1.8 L* 2.6 L
Hgb 11.2 L 11.8 L
Hct 32.0 L 34.8 L
Plt Count 59 L D 70 L
PT 14.3
INR 1.05
Sodium Pending
Potassium Pending
Chloride Pending
Carbon Dioxide Pending
BUN Pending
Creatinine Pending
Glucose Pending
Calcium Pending
Total Bilirubin Pending
AST Pending
ALT Pending
Alkaline Phosphatase Pending
Vital Signs:
Vital Signs
Temp Pulse Resp BP Pulse Ox
98.4 F 101 22 108/69 97
12/13/24 03:20 12/13/24 07:24 12/13/24 07:24 12/13/24 03:20 12/13/24 07:24
I&O
12/12/24 12/13/24 12/14/24
06:59 06:59 06:59
Intake Total 1730 / 1730 3180 / 3180
Balance 1730 / 1730 3180 / 3180
Review of Systems
-
History Source: Patient
EENT: Reports No Symptoms Reported
Respiratory: Reports No Symptoms
Cardiac: Reports No Symptoms
Abdomen/GI: Reports Nausea and Diarrhea
Genitourinary: Reports No Symptoms
Musculoskeletal: Reports No Symptoms
Skin: Reports No Symptoms
Neuro: Reports No Symptoms
Physical Exam
-
General: Well Developed and Well Nourished
HEENT: Normocephalic and Atraumatic
Respiratory: Clear to Auscultation
Cardiac: Regular Rhythm, S1/S2 and Tachycardic
GI: Soft, Nondistended and Other (Reviewed mild tenderness on the right upper quadrant area)
Musculoskeletal: No Clubbing, No Cyanosis and No Edema
Skin: Warm
Neuro: Awake, Alert, Oriented, AO x 3 and Nonfocal/Grossly Intact
Psych: Calm
[2024-12-13 08:09] LABS: ALT (SGPT) 312 U/L (0-35); AST (SGOT) 321 U/L (14-36); Albumin 2.7 g/dl (3.5-5.0); Alkaline Phosphatase 839 U/L (38-126); Blood Urea Nitrogen 6 mg/dl (7-17); Calcium 7.2 mg/dl (8.4-10.2); Carbon Dioxide 21 mmol/L (22-30); Chloride 110 mmol/L (98-107); Estimated Creatinine Clearance > 125 ml/min; Glucose 87 mg/dl (70-99); Potassium 3.9 mmol/L (3.5-5.1); Sodium 137 mmol/L (135-145); Total Bilirubin 1.4 mg/dl (0.2-1.3); eGFR > 60.00
[2024-12-13 08:34] LABS: % Basophils 0.8 % (0-2); % Eosinophils 2.3 % (0-6); % Immature Granulocytes 0.8 % (0-0.5); % Lymphocytes 60.3 % (20.5-51.1); % Neutrophils 27.8 % (42.2-75.2); Absolute Eosinophils 0.1 10^3/uL (0-0.7); Absolute Lymphocytes 1.6 10^3/uL (1.2-3.4); Absolute Monocytes 0.2 10^3/uL (0.1-0.6); Absolute Neutrophils 0.7 10^3/uL (1.4-6.5); Nucleated Red Blood Cells % 0 %
[2024-12-13] MEDS: NSS (PRESERVATIVE FREE) 10 ML IV (08:34)
[2024-12-13] MEDS: VISBIOME 1 CAP PO (08:34)
[2024-12-13] MEDS: PROTONIX IV 40 MG IV (08:34)
[2024-12-13] MEDS: VIBRAMYCIN 100 MG PO ×2 (08:34→21:24)
[2024-12-13] MEDS: ZOFRAN 4 MG IV ×2 (08:35→20:29)
[2024-12-13 11:30] VITALS: BP 124/76
--- NOTE | 2024-12-13 12:45 | PN.CDI ---
CDI
- -
CDI:
Physician Documentation Request
Admit Date: 12/11/24 19:07
Dear Doctor Demetrius,
Clinical Indicators:
Patient admitted with Sepsis.
12/12 PN, 'Neutropenia/thrombocytopenia -continue monitoring'
WBC, RBC, Plts:
12/11/24 12/12/24
15:51 06:16
WBC 1.1 L* 1.4 L*
RBC 4.08 L 4.15 L
Plt Count 44 L 42 L
Based on the above, could you clarify in the progress notes, the appropriate diagnosis, if significant, that supports the above abnormalities and additional evaluation, monitoring and/or treatment rendered:
Pancytopenia
Neutropenia/thrombocytopenia only
Other, please specify
Use of terms such as suspected, likely, concern for, or probable (associated with a specific diagnosis that is being evaluated, monitored, or treated as if it exists) are acceptable and can be coded in the inpatient setting, when documented at the
time of discharge.
Thank you,
JOSE GUADALUPE Cuevas RN
CDI Specialist
available via tiger text
Please use your independent medical judgment in providing your response.
--- NOTE | 2024-12-13 13:25 | W.PN.ID1 ---
Date of Service
Date of Service: December 13, 2024
Today's Communication
Continue doxycycline
Assessment / Plan
Fever
Leukopenia/neutropenia
Transaminitis
Elevated bilirubin
Hx asthma
Hx migraines
Recommendations:
Continue doxycycline.
Await pending tests, including blood cultures, tickborne serology and PCR
Follow white count and temperature curve.
Continue with supportive measures.
Further recommendations as additional data is returned.
����������������������������������������������������������
Chief Complaint
-: Fever
Subjective / Review of Systems
Patient seen and examined. Fevers again noted last evening. Patient evidently developed some facial redness around the time of cefepime infusion. Cefepime discontinued.
Vital Signs / Physical Exam
Vital Signs
Vital Signs
Temp Pulse Resp BP Pulse Ox
97.8 F 95 18 124/76 99
12/13/24 11:30 12/13/24 11:30 12/13/24 11:30 12/13/24 11:30 12/13/24 11:30
Physical Exam
Constitutional: No Acute Distress, Comfortable and Non-toxic
Eyes: No Conjunctival Hemorrhage and Sclera Anicteric
Cardiovascular: S1/S2; Negative S3/S4 or Murmur
Pulmonary: Non Labored
Gastrointestinal: Soft, Non Tender and Non Distended
Extremities: Negative Cyanosis or Erythema
Skin: Negative Rash
Neurological: Awake and Alert
Psychological: Calm
Objective Data
Lab Data
Lab Results
12/13/24 06:47
12/13/24 06:47
PT Cancelled 12/12/24 22:20
INR Cancelled 12/12/24 22:20
APTT 31.6 Sec (23.4-35.0) 12/11/24 15:51
Estimated Creat Clear > 125 ml/min 12/13/24 06:47
Lactic Acid Cancelled 12/12/24 04:43
Total Bilirubin 1.4 mg/dl (0.2-1.3) H 12/13/24 06:47
AST 321 U/L (14-36) H 12/13/24 06:47
ALT 312 U/L (0-35) H 12/13/24 06:47
Alkaline Phosphatase 839 U/L (38-126) H 12/13/24 06:47
Most recent labs reviewed.
Micro Results:
12/11/24 19:54 Blood Parasites Smear - Final
Blood/Venous - No blood parasites seen -
12/12/24 16:07 Respiratory Culture - Final
Sputum Gram Stain - Final
12/11/24 15:51 Blood Culture - Preliminary
Blood/Venous No Growth in 24 hours- Final report to follow
12/11/24 15:51 Blood Culture - Preliminary
Blood/Venous No Growth in 24 hours- Final report to follow
12/11/24 15:51 Urine Culture - Final
Urine
12/11/24 15:51 Influenza Types A & B (DONIS) - Final
Nasal Swab Negative for Influenza A & B, NAAT
Negative results must be combined with clinical observations
and patient history.
Nucleic Acid Amplification test (NAAT)performed on the
[employer] platform.
Imaging:
12/11/2024 CXR (2 view): Mild bilateral central peribronchial thickening, possibly representing bronchiolitis or reactive airway disease from asthma. No focal consolidation, pleural effusion or pneumothorax seen. Please see full dictation for
additional detail. Film personally reviewed.
Care Review
Plan reviewed with: Physician (Hospitalist)
[2024-12-13] MEDS: NSS IV (14:57)
[2024-12-13] MEDS: ROBITUSSIN 200 MG PO ×2 (15:30→20:30)
[2024-12-13 15:41] VITALS: BP 124/74
--- NOTE | 2024-12-13 16:04 | CM ---
Patient seen at bedside with physicians. Patient c/o vomiting today. CM will continue to follow for discharge planning needs.
Plan; home with family supports
[2024-12-13 19:09] VITALS: BP 120/77
[2024-12-13 19:39] LABS: Hematocrit 31.1 % (37.0-47.0); Hemoglobin 10.8 g/dL (12.0-16.0); Mean Corp Hgb Conc. 34.7 g/dL (33.0-37.0); Mean Corpuscular Hgb 30.2 pg (27.0-31.0); Mean Corpuscular Volume 86.9 fL (81.0-99.0); Mean Platelet Volume 11.3 fL (7.4-10.4); Platelet Count 92 10^3/uL (130-400); Red Blood Cell Count 3.58 10^6/uL (4.20-5.40); Red Cell Dist. Width 13.5 % (11.5-14.5); White Blood Cell Count 3.8 10^3/uL (4.8-10.8)
[2024-12-13 19:50] LABS: ALT (SGPT) 301 U/L (0-35); AST (SGOT) 330 U/L (14-36); Albumin 2.9 g/dl (3.5-5.0); Alkaline Phosphatase 1090 U/L (38-126); Direct Bilirubin 0.8 mg/dl (0.0-0.4); Total Bilirubin 1.2 mg/dl (0.2-1.3); Total Protein 5.1 g/dl (6.3-8.2)
[2024-12-13] MEDS: PAMELOR 20 MG PO (21:24)
[2024-12-13] MEDS: SINGULAIR 10 MG PO (21:24)
[2024-12-13 23:03] VITALS: BP 118/73
[2024-12-14] MEDS: ZYRTEC 10 MG PO (00:21)
[2024-12-14 00:28] LABS: EBV-EA (D) Ab IgG <5.0 U/mL (0.0-10.9); EBV-VCA IgM Antibodies <10.0 U/mL (0.0-43.9)
[2024-12-14 03:19] VITALS: BP 128/75
[2024-12-14] MEDS: ROBITUSSIN AC 5 ML PO (04:11)
[2024-12-14] MEDS: STERILE WATER FOR INJECTION 10 ML IV (05:40)
[2024-12-14] MEDS: MERREM 500 MG IV (05:40)
[2024-12-14 05:56] LABS: ALT (SGPT) 315 U/L (0-35); AST (SGOT) 320 U/L (14-36); Albumin 2.9 g/dl (3.5-5.0); Alkaline Phosphatase 1121 U/L (38-126); Blood Urea Nitrogen 3 mg/dl (7-17); Calcium 7.6 mg/dl (8.4-10.2); Carbon Dioxide 22 mmol/L (22-30); Chloride 110 mmol/L (98-107); Estimated Creatinine Clearance > 125 ml/min; Glucose 112 mg/dl (70-99); Potassium 3.9 mmol/L (3.5-5.1); Sodium 137 mmol/L (135-145); Total Bilirubin 1.1 mg/dl (0.2-1.3); Total Protein 5.1 g/dl (6.3-8.2); eGFR > 60.00
[2024-12-14] MEDS: DUONEB 3 ML INH (06:25)
[2024-12-14 07:48] VITALS: BP 134/74
[2024-12-14 08:17] LABS: Hematocrit 30.2 % (37.0-47.0); Hemoglobin 10.4 g/dL (12.0-16.0); Mean Corp Hgb Conc. 34.4 g/dL (33.0-37.0); Mean Corpuscular Hgb 29.5 pg (27.0-31.0); Mean Corpuscular Volume 85.6 fL (81.0-99.0); Mean Platelet Volume 11.1 fL (7.4-10.4); Platelet Count 100 10^3/uL (130-400); Red Blood Cell Count 3.53 10^6/uL (4.20-5.40); Red Cell Dist. Width 13.4 % (11.5-14.5); White Blood Cell Count 4.6 10^3/uL (4.8-10.8)
[2024-12-14] MEDS: VIBRAMYCIN 100 MG PO (08:52)
[2024-12-14] MEDS: PROTONIX IV 40 MG IV (08:53)
[2024-12-14] MEDS: VISBIOME 1 CAP PO (08:53)
[2024-12-14] MEDS: NSS (PRESERVATIVE FREE) 10 ML IV (08:53)
[2024-12-14] MEDS: ZOFRAN 4 MG IV (08:55)
--- NOTE | 2024-12-14 10:40 | W.PN.ID1 ---
Date of Service
Date of Service: December 14, 2024
Today's Communication
DC home to complete 2 weeks of doxycycline.
Assessment / Plan
Fever resolved
Leukopenia/neutropenia - improving
Transaminitis
Elevated bilirubin
Hx asthma
Hx migraines
Recommendations:
Continue doxycycline 100mg po bid x 2 weeks
DC meropenem.
tickborne serology and PCR pending
Bloode cx neg to date
blood smear neg parasite.
Continue with supportive measures.
OK to dc home.
Can follow-up with Dr. Abreu or call our office for results.
����������������������������������������������������������
Chief Complaint
-: Fever
Subjective / Review of Systems
Feeling better. Like to go home.
Vital Signs / Physical Exam
Vital Signs
Vital Signs
Temp Pulse Resp BP Pulse Ox
98.4 F 94 18 134/74 92
12/14/24 07:48 12/14/24 07:48 12/14/24 07:48 12/14/24 07:48 12/14/24 07:48
Physical Exam
Constitutional: No Acute Distress, Comfortable and Non-toxic
Eyes: No Conjunctival Hemorrhage and Sclera Anicteric
Cardiovascular: S1/S2; Negative S3/S4 or Murmur
Pulmonary: Non Labored
Gastrointestinal: Soft, Non Tender and Non Distended
Extremities: Negative Edema
Skin: Negative Rash
Neurological: AO x 3
Objective Data
Lab Data
Lab Results
12/14/24 07:47
12/14/24 05:17
PT Cancelled 12/12/24 22:20
INR Cancelled 12/12/24 22:20
APTT 31.6 Sec (23.4-35.0) 12/11/24 15:51
Estimated Creat Clear > 125 ml/min 12/14/24 05:17
Lactic Acid Cancelled 12/12/24 04:43
Total Bilirubin 1.1 mg/dl (0.2-1.3) 12/14/24 05:17
AST 320 U/L (14-36) H 12/14/24 05:17
ALT 315 U/L (0-35) H 12/14/24 05:17
Alkaline Phosphatase 1121 U/L (38-126) H 12/14/24 05:17
Most recent labs reviewed.
Micro Results:
12/11/24 15:51 Blood Culture - Preliminary
Blood/Venous No Growth in 48 hours- Final report to follow
12/11/24 15:51 Blood Culture - Preliminary
Blood/Venous No Growth in 48 hours- Final report to follow
12/11/24 19:54 Blood Parasites Smear - Final
Blood/Venous
12/12/24 16:07 Respiratory Culture - Final
Sputum Gram Stain - Final
12/11/24 15:51 Urine Culture - Final
Urine
12/11/24 15:51 Influenza Types A & B (DONIS) - Final
Nasal Swab Negative for Influenza A & B, NAAT
Negative results must be combined with clinical observations
and patient history.
Nucleic Acid Amplification test (NAAT)performed on the
[employer] platform.
Imaging:
12/11/2024 CXR (2 view): Mild bilateral central peribronchial thickening, possibly representing bronchiolitis or reactive airway disease from asthma. No focal consolidation, pleural effusion or pneumothorax seen. Please see full dictation for
additional detail. Film personally reviewed.
Care Review
Plan reviewed with: Physician (Dr. Ellis Wooten)
[2024-12-14 11:00] VITALS: BP 125/79
--- NOTE | 2024-12-14 11:33 | W.PN.HOSP.TC ---
Addendum entered and electronically signed by Danish Wooten MD 12/15/24 15:34:
Neutropenia/thrombocytopenia only
Original Note:
Today's Communication/Plan
-
d/c home
Assessment / Plan
Assessment / Plan
1. Sepsis -POA. Patient had ongoing neutropenia/fever/tachycardia. Associated with trans-aminitis. On suspected of possible tickborne illnesses as patient have recent history of traveling to [place] before 2 weeks. Infectious
mononucleosis spot test negative. HIV negative. Blood smear pending for Anaplasma/Beatriz/babesiosis is negative. serology result pending. Currently on empirically doxycycline to cover majority of tickborne illnesses.
Patient had questionable reaction to cefepime, not truly rash/allergic reaction. At discharge meropenem to be discontinued.
2. Transaminitis - Liver and abdominal ultrasound showing some signs of gallbladder wall thickening although no tenderness on examination. Nausea and vomiting was present before admission and has resolved. Low concern of acalculous cholecystitis.
Likely explanation is tickborne illnesses causing transaminitis. Continue monitoring. Avoid Tylenol for fever control while LFT improving, NSAID can be used instead.
LFT continue to uptrend and will require GI input, ? Possibly lagging behind in recoveru
3. Neutropenia/thrombocytopenia -continue monitoring. ANC of 0.8 yesterday, recheck today and maintain on neutropenic precautions if ANC less than thousand.
4. Nausea/vomiting - symptomatic care.
5. Hepatitis C viral antibody positive -? false positive, check for hepatitis C viral PCR.
Discharge serology for Lexis/anaplasmosis and hepatitis C viral panel is pending
Patient provided prescription for repeat blood work next week
Patient to follow-up with infectious disease office
More than 30 minutes spent in discharge including
Final examination of the patient
Summarizing hospital stay
Instructions for continuing care to all relevant caregivers
Preparation of discharge records, prescriptions, and referral forms
Total time spent (in minutes): 40 mins
Anticipated Discharge: Today
Subjective/Interval History
-
Date of Service: December 14, 2024
Resting comfortably in bed
Patient afebrile for last 24 hours
Nausea and vomiting has improved as well
Objective Data
-
Labs:
Laboratory Results
12/14/24 12/14/24
05:17 07:47
WBC Cancelled 4.6 L
Hgb Cancelled 10.4 L
Hct Cancelled 30.2 L
Plt Count Cancelled 100 L
Sodium 137
Potassium 3.9
Chloride 110 H
Carbon Dioxide 22
BUN 3 L
Creatinine 0.5 L
Glucose 112 H
Calcium 7.6 L
Total Bilirubin 1.1
AST 320 H
ALT 315 H
Alkaline Phosphatase 1121 H
Vital Signs:
Vital Signs
Temp Pulse Resp BP Pulse Ox
98.4 F 94 18 134/74 92
12/14/24 07:48 12/14/24 07:48 12/14/24 07:48 12/14/24 07:48 12/14/24 07:48
I&O
12/13/24 12/14/24 12/15/24
06:59 06:59 06:59
Intake Total 3180 / 3180 480 / 480
Balance 3180 / 3180 480 / 480
Review of Systems
-
Respiratory: Reports No Symptoms
Cardiac: Reports No Symptoms
Abdomen/GI: Reports No Symptoms
Physical Exam
-
General: Negative Respiratory Distress, Appears in Distress or Pain
HEENT: Negative Oxygen
Musculoskeletal: No Edema
Neuro: Awake, Alert, Oriented and No Motor Deficits
[2024-12-15 10:24] LABS: Anaplasma phagocytophilum IgG <1:80 (<1:80); Anaplasma phagocytophilum IgM < 1:16 (< 1:16)
--- NOTE | 2024-12-15 15:50 | W.DCSUMMARY ---
Discharge Summary
Discharge Data
Date of Admission: 12/11/24
Date of Discharge: 12/14/24
-
Pending Results: No
Hospital Course
Discharging Physician : Dr Danish Wooten
Disposition : To home
Primary care physician : Unknown
Principal Discharge diagnosis :
Fever of unclear origin, suspected tickborne illness
Neutropenia/thrombocytopenia
Nausea/vomiting
Acute transaminitis
Hepatitis C viral antibody positive
Chronic Discharge diagnosis :
Depression/anxiety
Asthma
Hospital Course :
Patient is a 29-year-old female with no significant past medical history except above came to ER for having ongoing nausea/vomiting, fatigue for few days. Patient started to having new headache and fever as well with some greenish sputum
production. Came to ER for further evaluation. In ER laboratory evaluation showing patient having thrombocytopenia/neutropenia. Liver enzymes are elevated. Case was discussed with infectious disease doctor as patient have recent history of
travel to [place]. There is mention of patient having possible tickborne illnesses. Blood tests for early//Anaplasma/Babesia/Lyme's/peripheral blood smear checked were sent. In light of patient transaminitis hepatitis panel was also sent.
Most of the workup has been negative with oral discharge/Anaplasma serology pending. Patient was maintained on empiric doxycycline by ID. Patient had defervesced since achieved during the hospital stay.
Patient will gallbladder sound which showed mild gallbladder wall thickening no cholelithiasis. Liver enzymes up trended with plateauing in range of low 300s. Hepatitis C viral antibody was positive follow-up hepatitis C viral RNA load sent result
of which is pending.
After clinical improvement in symptoms patient was discharged home with plan to have outpatient follow-up CBC/CMP check. Patient will follow-up with infectious disease Dr. In office as well
Important imaging findings :
None
Procedure findings :
None
Discharge Plan
-
Patient Disposition: Home (Routine Discharge)
Discharge Diagnosis/Procedures: presumed Tick borne illness, sepsis
Condition: Fair
Diet: Regular
Activity: As tolerated
Driving Restrictions: As prior to admission
Blood Work: CBC/CMP in 1 week
Referrals:
Mikel Abreu, DO [Active, Infectious Diseases] - in one to two weeks
UNKNOWN - PT DOES,NOT KNOW [Family Provider]
Prescriptions:
New
ondansetron 4 mg tablet,disintegrating
4 mg PO Q8H PRN (Reason: nausea and vomiting) 5 Days Qty: 14 0RF
doxycycline hyclate 100 mg capsule
100 mg PO BID Qty: 28 0RF
Continued
nortriptyline 10 mg Capsule
20 mg PO HS
montelukast 10 mg Tablet
10 mg PO HS
Airsupra 90-80 mcg/actuation Hfa Aerosol Inhaler
2 inh INHALATION ONCE PRN (Reason: sob)
Rx Instructions:
as a single dose; may repeat up to 6 doses per day (12 inhalations)
Discharge Orders:
Discharge Patient (As Directed); Ordered 12/14/24
Ordered By: Danish Wooten
Discharge Date and Time
Discharge Date/Time: 12/14/24 11:47
Print Language: FAROESE
[2024-12-15 16:31] LABS: Ehrlichia chaffeensis IgG Ab <1:64 (<1:64); Ehrlichia chaffeensis IgM Ab < 1:16 (< 1:16)
[2024-12-15 16:51] LABS: Parvo B19 Ab, IgM 0.51 IV (<=0.89); Parvo Virus B19 Ab, IgG 0.37 IV (<=0.90)
[2024-12-16 16:57] LABS: HCV Quant by NAAT IU/mL Not Detected; HCV Quant by NAAT Interp Not Detected (Not Detected); HCV Quant by NAAT Log IU/mL Not Detected log IU/mL
== END 2024-12-14 11:47 | disposition home or self-care (01) | DRG 872 ==
LOC: 2 NORTH 19:07
PROVIDERS: Emergency Medicine; Registered Nurse; Student in an Organized Health Care Education/Training Program; ADMITTING PHYSICIAN Student in an Organized Health Care Education/Training Program; ATTENDING PHYSICIAN Hospitalist; CONSULT PHYSICIAN Internal Medicine Infectious Disease; EMERGENCY PHYSICIAN Student in an Organized Health Care Education/Training Program
DX: A41.9 Sepsis, unspecified organism (principal); E87.20 Acidosis, unspecified; A93.8 Other specified arthropod-borne viral fevers; R65.20 Severe sepsis without septic shock; J45.909 Unspecified asthma, uncomplicated; D69.6 Thrombocytopenia, unspecified; R50.81 Fever presenting with conditions classified elsewhere; D70.9 Neutropenia, unspecified; R74.01 Elevation of levels of liver transaminase levels; F32.A Depression, unspecified; F41.9 Anxiety disorder, unspecified; B19.20 Unspecified viral hepatitis C without hepatic coma; E83.51 Hypocalcemia; G43.909 Migraine, unspecified, not intractable, without status migrainosus; Z11.52 Encounter for screening for COVID-19
CPT/HCPCS: 71046; 76700; 80053; 80076; 81003; 81015; 83605; 84703; 85025; 85027; 85610; 85730; 86308; 86663; 86664; 86665; 86666; 86705; 86706; 86709; 86747; 86803; 87015; 87040; 87070; 87086; 87205; 87207; 87340; 87389; 87502; 87522; 87811; 93005; 94640; 99285